=== PATIENT | female | born 1960 | race Caucasian/White ===

== ENCOUNTER 2020-08-29 15:16 | Outpatient (CLI) | payer BC, SELFPAY ==
--- NOTE | 2020-08-29 15:30 | MM_ITS ---
WS: [id number] BILATERAL SCREENING DIGITAL MAMMOGRAM WITH CAD HISTORY: screening for breast cancer COMPARISON: 08/17/2019, 08/21/2017 and 06/21/2011 Bilateral CC and MLO views submitted. Computer aided detection analyzed. Breast composition: The breasts are heterogeneously dense, which may obscure small masses. No suspici ous masses, microcalcifications or architectural distortion. MM/[place] [id number] IMPRESSION: BI-RADS: 1-Negative FOLLOW UP: 1 Year Follow-up
--- NOTE | 2020-08-29 15:47 | XR_ITS ---
WS: [id number] SCREENING DEXA SCAN [place] CLINICAL INFORMATION: postmenopause COMPARISON: None. FINDINGS: The L1-L4 bone mineral density measures 1.152 g/cm2. This corresponds to a T score score of -0.2 and Z score of 1.1. Left femoral neck bone mineral density measures 0.949 g/cm2. This corresponds to a T score of -0.5 an d Z score of 0.6. Right femoral neck bone mineral density measures 0.947 g/cm2. This corresponds to a T score -0.5of an d Z score of 0.5. Mean femoral neck bone mineral density measures 0.948 g/cm2. This corresponds to a T score of -0.5 an d Z score of 0.5. XR/XR DEXA axial skeleton* 12250 IMPRESSION: Normal bone mineralization. Patient's FRAX calculated 10 year probability for major osteoporotic fracture i s 12.1 % and osteoporotic hip fracture is 0.7%.
== END 2020-08-29 15:17 | disposition home or self-care (01) ==
LOC: RADSHAW 15:17
PROVIDERS: PCP Family Medicine; Visit Provider Nurse Practitioner Women's Health
DX: Z12.31 Encounter for screening mammogram for malignant neoplasm of breast (principal); Z78.0 Asymptomatic menopausal state
CPT/HCPCS: 77067; 77080